=== PATIENT | female | born 1975 | race Caucasian/White ===

== ENCOUNTER 2024-06-29 15:49 | Emergency (ER) | payer MEDICAID ==
[2024-06-29] MEDS ORDERED: Sodium Chloride 0.9% 10 ML Syringe FLUSH PRN (16:13)
[2024-06-29 16:21] LABS: BASOPHILS ABSOLUTE AUTO 0.01 K/uL (0.00-0.20); BASOPHILS PERCENT AUTO 0.3 % (0.0-1.0); EOSINOPHILS ABSOLUTE AUTO 0.04 K/uL (0.00-0.45); EOSINOPHILS PERCENT AUTO 1.1 % (0.0-6.0); HEMATOCRIT 30.6 % (37.0-47.0); HEMOGLOBIN 10.2 g/dL (12.0-16.0); IMMATURE GRAN ABSOLUTE AUTO 0.01 K/uL (0.00-0.05); IMMATURE GRAN PERCENT AUTO 0.3 % (0.0-0.4); LYMPHOCYTES PERCENT AUTO 11.4 % (24.0-44.0); MEAN CORPUSCULAR HGB CONC 33.3 g/dL (32.0-36.0); MEAN CORPUSCULAR VOLUME 86.9 fL (83.0-99.0); MEAN PLATELET VOLUME 11.5 fL (9.4-12.3); MONOCYTES ABSOLUTE AUTO 0.56 K/uL (0.00-0.80); MONOCYTES PERCENT AUTO 15.9 % (0.0-8.0); PLATELET COUNT,PLT 139 K/uL (150-400); RED BLOOD CELL COUNT 3.52 M/uL (4.10-5.30); WHITE BLOOD CELL COUNT,WBC 3.52 K/uL (3.9-11.3)
[2024-06-29] MEDS: Iopamidol 755 MG/ML 500 ML Multipack Bottle IVPUSH STA (16:21)
[2024-06-29 16:29] LABS: INR 0.94 (0.86-1.11)
[2024-06-29 16:40] LABS: A/G RATIO 0.8 (0.9-1.6); ALANINE AMINOTRANSFERASE,ALT 66 IU/L (14-63); ALBUMIN 3.6 g/dL (3.4-5.0); ALKALINE PHOSPHATASE 46 U/L (46-116); ASPARTATE AMNIOTRANSFERASE,AST 101 IU/L (15-37); BILIRUBIN TOTAL 0.6 mg/dL (0.2-1.0); BLOOD UREA NITROGEN,BUN 28 mg/dL (7.0-18.0); CALCIUM 9.4 mg/dL (8.5-10.1); CARBON DIOXIDE,CO2 30.1 mmol/L (21.0-32.0); CHLORIDE,CL 97 mmol/L (98-107); CREATININE 1.2 mg/dL (0.6-1.0); GLUCOSE RANDOM 97 mg/dL (74-106); MAGNESIUM 2.4 mg/dL (1.8-2.4); POTASSIUM,K 3.2 mmol/L (3.5-5.1); PROTEIN TOTAL,TP 7.9 g/dL (6.4-8.2); SODIUM,NA 137 mmol/L (136-145)
[2024-06-29 16:51] LABS: ESTIMATED GFR 57 mL/min (>60)
[2024-06-29] MEDS: Clopidogrel 75 MG Tab PO ONE (18:41)
[2024-06-29] MEDS: Potassium Chloride 20 MEQ Tab.ER PO ONE (18:42)
[2024-06-29] MEDS: Aspirin 81 MG Tab.Chew PO ONE (18:42)
== END 2024-06-29 21:23 ==
LOC: MW.ED 15:49
DX: I63.9 Cerebral infarction, unspecified (principal); I10 Essential (primary) hypertension
CPT/HCPCS: 36415; 70450; 70496; 70498; 71045; 80053; 82947; 83735; 84484; 85025; 85610; 93005; 99285; A9270; Q9967